=== PATIENT | male | born 1935 | race Caucasian/White ===

== ENCOUNTER → 2016-06-30 | Outpatient (CLI) | payer MEDICARE ==
[2016-06-30 15:10] LABS: ALBUMIN 3.4 gm/dL (3.5-5.0); TOTAL BILIRUBIN 1.4 mg/dL (0.0-1.5); TOTAL PROTEIN 8.2 g/dL (6.0-8.4)
== END ==
LOC: LNHI 14:48
PROVIDERS: Internal Medicine Interventional Cardiology
DX: I10 Essential (primary) hypertension (principal); I25.10 Atherosclerotic heart disease of native coronary artery without angina pectoris; Z45.010 Encounter for checking and testing of cardiac pacemaker pulse generator [battery]

== ENCOUNTER → 2016-08-18 | Outpatient (CLI) | payer MEDICARE | END | disposition disaster alternative care site (69) | LOC: GRAD 11:00 | DX: J90 Pleural effusion, not elsewhere classified (principal); N28.1 Cyst of kidney, acquired; R16.1 Splenomegaly, not elsewhere classified; Z98.890 Other specified postprocedural states ==

== ENCOUNTER → 2016-09-22 | Outpatient (CLI) | payer MEDICARE ==
[2016-09-22 09:18] LABS: BASOPHIL % 0.3 %; EOSINOPHIL # 0.2 K/uL (0.0-0.5); HEMATOCRIT 36.9 % (33.0-50.0); HEMOGLOBIN 12.8 g/dL (11.0-16.0); IMMATURE GRANULOCYTE % 0.5 %; LYMPHOCYTE # 0.6 K/uL (0.8-4.0); LYMPHOCYTE % 7.8 %; MCH 31.1 pg (27.0-34.0); MCHC 34.7 gm/dL (32.0-36.5); MCV 89.8 fl (83.0-98.0); MONOCYTE # 0.7 K/uL (0.0-1.0); MONOCYTE % 9.6 %; MPV 9.6 fl (9.4-12.4); NEUTROPHIL % 79.8 %; NRBC % 0 /100WBC (0-0.00); PLATELET COUNT 194 K/uL (150-450); RBC 4.11 M/uL (3.50-5.50); RDW-CV 17.6 % (11.9-14.6); WBC 7.5 K/uL (4.0-11.0)
[2016-09-22 09:33] LABS: ANION GAP 9.7 (10.0-19.0); CREATININE 0.8 mg/dL (0.6-1.3); POTASSIUM 3.7 mMol/L (3.7-5.1)
[2016-09-22 09:34] LABS: TOTAL BILIRUBIN 2.3 mg/dL (0.0-1.5)
== END | disposition disaster alternative care site (69) ==
LOC: LNHI 08:52
PROVIDERS: Internal Medicine Interventional Cardiology
DX: I25.10 Atherosclerotic heart disease of native coronary artery without angina pectoris (principal); R53.83 Other fatigue; Z45.018 Encounter for adjustment and management of other part of cardiac pacemaker

== ENCOUNTER → 2016-09-29 | Outpatient (CLI) | payer MEDICARE ==
[2016-09-29 11:10] LABS: ANION GAP 8.7 (10.0-19.0); CALCIUM 9.1 mg/dL (8.5-10.5); CREATININE 0.8 mg/dL (0.6-1.3); POTASSIUM 3.7 mMol/L (3.7-5.1)
== END | disposition disaster alternative care site (69) ==
LOC: LNHI 10:50
PROVIDERS: Internal Medicine Interventional Cardiology
DX: J90 Pleural effusion, not elsewhere classified (principal)

== ENCOUNTER → 2016-10-25 | Outpatient (CLI) | payer MEDICARE ==
[2016-10-25 14:43] LABS: ANION GAP 8.8 (10.0-19.0); CREATININE 0.9 mg/dL (0.6-1.3); POTASSIUM 3.8 mMol/L (3.7-5.1)
== END ==
LOC: LNHI 14:26
PROVIDERS: Internal Medicine Interventional Cardiology
DX: R06.00 Dyspnea, unspecified (principal); I25.10 Atherosclerotic heart disease of native coronary artery without angina pectoris; R53.83 Other fatigue; J90 Pleural effusion, not elsewhere classified